=== PATIENT | female | born 1940 | race Caucasian/White ===

== ENCOUNTER 2024-01-22 09:23 | Emergency (ER) | payer MEDICARE, BC ==
[~2024-01-22] VITALS: Ht 154.9 cm; Wt 72.6 kg
[~2024-01-22 09:23] MED LIST: NO DAILY MEDS
[2024-01-22 14:53] LABS: BILIRUBIN Negative (Negative); BLOOD Negative (Negative); CLARITY Clear (Clear); COLOR Yellow (Yellow); GLUCOSE Negative (Negative); KETONE 1+ (Negative); LEUKO ESTERASE Negative (Negative); NITRITE Negative (Negative); SPECIFIC GRAVITY 1.015 (1.001-1.030); UROBILINOGEN 0.2 E.U./dl (0.0-1.0)
[2024-01-22 14:56] LABS: BASO % 0.1 % (0.0-1.0); EOS # 0.1 10*3/uL (0.0-0.4); EOS % 0.7 % (1.0-4.0); HEMATOCRIT 48.4 % (37.0-47.0); LYMPH # 1.3 10*3/uL (1.3-4.4); MEAN CELL VOLUME 97.6 fl (81.0-99.0); MEAN CORPUSCULAR HGB 31.7 pg (27.0-31.0); MEAN CORPUSCULAR HGB CONC 32.4 g/dl (33.0-37.0); MEAN PLATELET VOLUME 9.7 fl (9.6-12.3); MONO # 0.6 10*3/uL (0.1-1.0); MONO % 8.5 % (3.0-9.0); NEUT # 5.5 10*3/uL (2.3-7.9); NEUT % 73.4 % (47.0-73.0); PLATELET COUNT AUTOMATED 231 10*3/uL (130-400); RED BLOOD COUNT 4.96 10*6/uL (4.10-5.10); RED CELL DISTRI WIDTH 13.4 % (0-14.5); WHITE BLOOD COUNT 7.5 10*3/uL (4.8-10.8)
[2024-01-22 15:04] LABS: RBC 0-2 rbc/hpf (0-2)
[2024-01-22 15:14] LABS: ACT PARTIAL THROMBO TIME 22.1 SECONDS (20.0-32.1)
[2024-01-22 15:18] LABS: ALKALINE PHOSPHATASE 111 U/L (46-116); BUN 8 mg/dl (9-23); CHLORIDE 104 mmol/L (98-107); LIPASE 31 U/L (12-53); POTASSIUM 4.8 mmol/L (3.4-5.1); SGPT/ALT 25 U/L (5-49); TOTAL PROTEIN 7.8 gm/dL (6.0-8.0)
[2024-01-22] MEDS ORDERED: Acetaminophen/Hydrocodone 5 MG/325 MG TABLET PO ONE (16:50)
[2024-01-22] MEDS ORDERED: HYDROCODONE-AC1 EAC1 PO (16:51)
[2024-01-23] MEDS ORDERED: HYDROCODONE-AC1 EAC1 PO (09:32)
== END 2024-01-22 17:01 | disposition home or self-care (01) ==
LOC: ED 09:23
PROVIDERS: Emergency Medicine
DX: S32.028A Other fracture of second lumbar vertebra, initial encounter for closed fracture (principal); X58.XXXA Exposure to other specified factors, initial encounter; Y93.89 Activity, other specified; Y92.89 Other specified places as the place of occurrence of the external cause; Y99.8 Other external cause status